=== PATIENT | male | born 1980 | race Caucasian/White ===

== ENCOUNTER 2019-11-24 17:03 | Emergency (ER) | payer MEDICAID, SELFPAY ==
[2019-11-24 17:04] VITALS: BP 125/78; PULSE 87; RESP 16; TEMP 36.6; O2SAT 98; BMI 27.3
--- NOTE | 2019-11-24 17:23 | XR_ITS ---
PROCEDURE: XR FOOT LT MIN 3V CLINICAL INDICATION: swelling/pain COMPARISON: No exams were available for comparison FINDINGS: There are no previous exams available for comparison. There is a dorsal bone plate at the 1st metacarpal-carpal junction and 2nd metacarpal-carpal junction. No obvious hardware malfunction. There is mild soft tissue swelling along the dorsal aspect of the midfoot. No fracture or dislocation. IMPRESSION: Prior arthrodesis 1st and 2nd metacarpal/carpal junction with mild soft tissue swelling Dictated by: Adam Haji MD 11/25/2019 08:13 Electronically signed by Adam Haji MD in [place] 11/25/2019 08:13
--- NOTE | 2019-11-24 17:26 | [facility].EDGENADL ---
ED Disposition Clinical Impression: Foot pain, left Disposition: Home, Self-Care Condition on Discharge: Good Instructions: DI for Acute Pain -- Adult Prescriptions: Ketorolac Tromethamine [Toradol 10mg tablet] 10 mg PO Q6H 5 Days #20 tab Prescription Printed - Critical Care Critical Care Time: No Attestation: On , the high probability of a clinically significant, sudden or life threatening deterioration of the following system(s) required my full and direct attention, intervention and personal management. The time I documented below is in addition to time spent performing reported procedures but includes the following listed in this critical care notation. Medical Decision Making - Medical Records Medical records reviewed: Yes: I reviewed the patient's medical records. - [place] Inquiry Pt receiving controlled substance: No Vital Signs: 11/24/19 17:04 Temperature 97.8 F Temperature Source Oral Pulse Rate [Left Radial] 87 Respiratory Rate 16 Blood Pressure [Right Arm] 125/78 Blood Pressure Mean [Right Arm] 93 Blood Pressure Position [Right Arm] Sitting 02 Sat by Pulse Oximetry 98 Oxygen Delivery Method Room Air Orders (Tests/Meds): ORDERS Category Date Time Status Foot XR left minimum 3 views [XR foot LT min 3V] Stat Exams 11/24/19 17:23 Taken - Radiology Data #1 Image(s): Foot/Toes Image Reviewed: Yes I reviewed the patient's radiology image Preliminary Findings: Normal/NAD stable hardware General Adult HPI - General Chief complaint: PAIN Stated complaint: Left foot pain Time Seen by Provider: 11/24/19 17:10 Mode of Arrival: Ambulatory Limitations: No Limitations Description of Symptoms (Recalled from ER Triage Doc. by RN): TO ED PER [facility] CAR WITH C/O SWELLING LT FOOT X 2 DAYS. PT STATES HX OF FRACTURE 1 YEAR AGO WITH SURGERY PLATES . PT DENIES ANY INJURY PT STATES HE HAS NOT HAD ANY PROBLEMS SINCE SURGERY 1 YEAR AGO - History of Present Illness HPI narrative: This is a 38-year-old male that presents with 2-day history of right foot swelling and pain. Patient reports history of Lisfranc fracture approximately 1 year ago that had surgical fixation at that time. He reports that he has been up on that extremity increasingly over the past 2 days and has ambulated long distance. Pain is mild and swelling is moderate pain is dull constant and not exacerbated by anything. No fever chills no erythema or fluctuance to the area. Patient denies any shortness of breath or chest pain associated with his symptoms. No known trauma/injury. Onset (ago): day(s) (1-2d) - Related Data Home Medications Medication Instructions Recorded Confirmed Buprenorphine HCl/Naloxone HCl 1 each SL DAILY 11/24/19 11/24/19 [Suboxone 8 mg-2 mg Sl Film] Desvenlafaxine Succinate [Pristiq] 25 mg PO DAILY 11/24/19 11/24/19 Topiramate [Topamax] 25 mg PO DAILY 11/24/19 11/24/19 Previous Rx's Medication Instructions Recorded Ketorolac Tromethamine [Toradol 10 mg PO Q6H 5 Days #20 tab 11/24/19 10mg tablet] Allergies Allergy/AdvReac Type Severity Reaction Status Date / Time No Known Allergies Allergy Verified 11/24/19 17:[address] [facility] History - Hepatitis A Screen Drug use history?: No High risk sexual behaviors?: No History of sexually transmitted infection?: No Currently employed?: No Childcare worker?: No Do you have indoor plumbing?: Yes Do you have electricity?: Yes Attestation statement:: This patient has been screened for Hepatitis A risk factors. I have reviewed the patient's past medical history: Yes Laterality Cases: Right: Other (R.Foot ORIF) - Social History Smoking Status: Current every day smoker Tobacco Type: cigarettes # Packs/Day (cigarettes): 1 Alcohol Intake: never Occupational Status: other Housing: other Household Members: other ROS Obtained: Yes All systems reviewed & no additional complaints Physical Exam - General General appearance
--- NOTE | 2019-11-24 17:32 | PC.NURSE ---
rad at bedside
[2019-11-24 18:17] VITALS: BP 132/78; PULSE 78; RESP 16; TEMP 36.6; O2SAT 98
== END 2019-11-24 18:18 | disposition home or self-care (01) ==
PROVIDERS: Emergency Provider Emergency Medicine
DX: M79.672 Pain in left foot (principal)
CPT/HCPCS: 73630; 96372; 99282